=== PATIENT | male | born 1955 | race Caucasian/White ===

== ENCOUNTER → 2021-05-18 | Outpatient (CLI) | payer MEDICARE, MEDICAID | END | disposition home or self-care (01) | LOC: ROC 09:04 | PROVIDERS: ATTEND Radiology Radiation Oncology | DX: C34.11 Malignant neoplasm of upper lobe, right bronchus or lung (principal); Z87.891 Personal history of nicotine dependence | CPT/HCPCS: 99214; G0463 ==

== ENCOUNTER 2021-05-20 08:49 | Day surgery (SDC) | payer MEDICARE, MEDICAID ==
[~2021-05-20] VITALS: Ht 177.8 cm; Wt 78.5 kg
[2021-05-20 09:21] VITALS: BP 121/73
[2021-05-20] MEDS ORDERED: SODIUM CHLORIDE 0.9% 1,000 ML IV SCH (09:30)
[2021-05-20] MEDS ORDERED: CEFAZOLIN PMX 1GM/50ML 50 ML IV ONE (09:30)
[2021-05-20] MEDS ORDERED: LIDOCAINE 1%, 20ML ONE (10:34)
[2021-05-20] MEDS ORDERED: FENTANYL PF 100 MCG/2ML ONE (11:04)
[2021-05-20] MEDS ORDERED: MIDAZOLAM 1 MG/ML, 5ML ONE (11:04)
[2021-05-20] MEDS ORDERED: FLUMAZENIL 0.1 MG/1 ML, 5ML ONE (11:04)
[2021-05-20] MEDS ORDERED: NALOXONE 1 MG/ML, 2ML ONE (11:04)
== END 2021-05-20 14:06 | disposition home or self-care (01) ==
LOC: RAD 08:49
PROVIDERS: ATTEND Internal Medicine Hematology & Oncology
DX: C34.11 Malignant neoplasm of upper lobe, right bronchus or lung (principal); K21.9 Gastro-esophageal reflux disease without esophagitis; F32.9 Major depressive disorder, single episode, unspecified; F41.9 Anxiety disorder, unspecified; Z79.899 Other long term (current) drug therapy; Z87.891 Personal history of nicotine dependence
CPT/HCPCS: 10005; 36561; 76937; 77001; 88172; 88173; 88305; 99156; 99157; C1788; C1894; J0690; J1642; J2250; J3010; J7030; 20206; 76942; J2310

== ENCOUNTER 2021-07-27 07:12 | Outpatient (CLI) | payer MEDICARE, MEDICAID ==
[~2021-07-27 07:12] MED LIST: ESCI20TA10 PO; LUTE1CAP7 PO; ONDA4TAB7 PO; TRAZ50TA66 PO
== END 2021-07-27 23:59 | disposition home or self-care (01) ==
LOC: ROC 07:12
PROVIDERS: ATTEND Radiology Radiation Oncology
DX: Z08 Encounter for follow-up examination after completed treatment for malignant neoplasm (principal); Z85.118 Personal history of other malignant neoplasm of bronchus and lung; F41.9 Anxiety disorder, unspecified; K21.9 Gastro-esophageal reflux disease without esophagitis; F32.9 Major depressive disorder, single episode, unspecified; Z87.891 Personal history of nicotine dependence; Z79.899 Other long term (current) drug therapy
CPT/HCPCS: 99212; G0463